=== PATIENT | male | born 1960 | race Caucasian/White ===

== ENCOUNTER 2017-10-14 13:39 | Day surgery (SDC) | payer BC ==
[2017-10-07 16:44] VITALS: BMI 38.9
--- NOTE | 2017-10-13 16:27 | HP ---
HISTORY AND PHYSICAL REASON FOR ADMISSION: Surgery is scheduled for 10/14/2017 Manuel Sanon is a 56-year-old patient seen with symptomatic right carpal tunnel syndrome. After having treatment options discussed, he elected to proceed with decompression right median nerve. Consent regarding the procedure was obtained. PAST MEDICAL HISTORY: Gout. PAST SURGICAL HISTORY: Right shoulder arthroscopy. MEDICATIONS: Allopurinol, indomethacin. ALLERGIES: None reported. SOCIAL HISTORY: Patient smokes a half pack cigarettes daily. PHYSICAL EXAMINATION: Physical evaluation right hand revealed positive carpal compression carpal Tinel's causing numbness, tingling in the median nerve distribution. Nontender along the A1 donte sites. There is decreased sensation along the median nerve distribution. There is a good radial pulse present. The patient is able move fingers without pain. RADIOGRAPHS: Radiographs of the right hand and wrist reveals some mild osteoarthritis. An EMG of the upper extremity revealed carpal tunnel syndrome. IMPRESSION: Right carpal tunnel syndrome. PLAN: Decompression right median nerve. Surgery is scheduled for 10/14/2017. MMODL / IJN: [id number] /
[~2017-10-14 13:39] MED LIST: DEXAMETHASONE SOD PHOSPHATE 10 MG/ML 1 ML VIAL IV ONE; HYDROmorphone 0.5 MG/0.5 ML SYRINGE IVP PRN; LACTATED RINGERS 1,000 ML IV SCH; LIDOCAINE 1% 20 ML VIAL (10MG/ML) FOR IV START INTRADERMA PRN; MIDAZOLAM 2 MG/2 ML VIAL IV PRN; ONDANSETRON 4 MG/2 ML VIAL IVP ONE; SCOPOLAMINE 1.5MG/72HR PATCH TRANSDERM ONE
[2017-10-14 14:15] VITALS: RESP 16; TEMP 98.5
[2017-10-14] MEDS ORDERED: fentaNYL (PF) 50 MCG/ML 2 ML AMP ONE (15:41)
[2017-10-14] MEDS ORDERED: PROPOFOL 10 MG/ML 20 ML VIAL IV ONE (15:41)
[2017-10-14] MEDS ORDERED: MIDAZOLAM 2 MG/2 ML VIAL ONE (15:41)
[2017-10-14] MEDS ORDERED: BUPIVACAINE (PF) 0.25% 30 ML VIAL SQ ONE ×2 (15:57)
--- NOTE | 2017-10-14 16:22 | P.OP ---
Date of Procedure: 10/14/17 Preoperative Diagnosis: Right carpal tunnel syndrome Postoperative Diagnosis: Same Procedure(s) Performed: Decompression right median nerve Anesthesia: MAC, local Surgeon: Aaron Armenta Estimated Blood Loss (ml): 0 Pathology: none sent Condition: stable Disposition: PACU Indications for Procedure: 56-year-old patient seen with symptomatic right carpal tunnel syndrome. After treatment options were discussed, he elected to proceed with decompression right median nerve. Operative Findings: See description of procedure Description of Procedure: The patient was taken to the operative suite. The patient received preoperative IV antibiotics. He well-padded tourniquet was placed proximal right upper extremity. The right upper extremity was prepped and draped in the normal sterile orthopedic fashion. I infiltrated the proposed incision site with 14 mL quarter percent plain Marcaine. When sufficient local analgesia was noted the extremity was elevated and tourniquet insufflated to 250. I now made an incision beginning at the distal volar wrist crease. It extended distally approximately 3 cm in line with the fourth metacarpal sharply through skin. Dissection was taken down through the palmar fascia to the transverse carpal ligament. I now incised the transverse carpal ligament. I released the transverse carpal ligament proximally and distally with blunt Metzenbaums. There was complete release of the ligament and good decompression of the nerve. We had good hemostasis. The wound was irrigated. The skin margins were approximated nylon suture. Sterile dressings were applied. The tourniquet was released with immediate capillary refill of all digits noted. I applied sterile web roll followed by sterile Aren bandage. The patient was awakened and then transferred to recovery stable condition.
[2017-10-14 16:49] VITALS: BP 133/86; PULSE 79
== END 2017-10-14 17:00 | disposition home or self-care (01) ==
LOC: OR 13:39
PROVIDERS: ATTEND Orthopaedic Surgery
DX: G56.01 Carpal tunnel syndrome, right upper limb (principal); M19.041 Primary osteoarthritis, right hand; M19.031 Primary osteoarthritis, right wrist; M10.9 Gout, unspecified; E66.01 Morbid (severe) obesity due to excess calories; Z68.38 Body mass index [BMI] 38.0-38.9, adult; Z79.82 Long term (current) use of aspirin; Z79.899 Other long term (current) drug therapy; F17.210 Nicotine dependence, cigarettes, uncomplicated
CPT/HCPCS: 64721; J2250; J1100; J0690; J2405; J3010; J2704